=== PATIENT | female | born 1970 | race African-American/Black ===

== ENCOUNTER 2018-11-24 20:50 | Observation (INO) ==
[2018-11-24] MEDS ORDERED: NS 1,000 ML IV ONE ×2 (21:38→23:46)
--- NOTE | 2018-11-24 22:12 | PROVIDER DOCUMENTATION ---
HPI-General Adult - General Chief Complaint: Weakness Stated Complaint: FATIGUE, SOB, NAUSEATED Time Seen by Provider: 11/24/18 21:37 Source: patient Allergies/Adverse Reactions: Patient Allergies Allergy/AdvReac Type Severity Reaction Status Date / Time aspirin Allergy NAUSEA Verified 11/24/18 21:09 [facility] Allergy ITCHING Verified 11/24/18 21:09 sitagliptin phosphate * AdvReac Severe "STOPS MY Verified 11/24/18 21:09 [From Jc] HEAD UP" Home Medications: Home Medication List Medication Instructions Recorded Confirmed Last Taken Type Citalopram Hydrobromide [Celexa] 10 mg PO DAILY 11/15/12 10/18/18 08/19/18 History Omeprazole [Prilosec] 20 mg PO DAILY@0700 11/15/12 10/18/18 08/19/18 History Carvedilol [Coreg] 3.125 mg PO BID #0 tablet 02/10/14 10/18/18 08/19/18 Rx PRAVAstatin [Pravachol] 40 mg PO QHS #0 tablet 02/10/14 10/18/18 08/19/18 Rx Cyproheptadine [Periactin] 4 mg PO HS 09/11/14 10/18/18 08/19/18 History Chlorthalidone 25 mg PO QAM 09/16/16 10/18/18 08/19/18 History Ferrous Sulfate [Iron] 27 mg PO DAILY 09/23/17 10/18/18 08/19/18 History Liraglutide [Victoza] 1.2 units SUBQ DAILY 09/23/17 10/18/18 08/19/18 History Metformin HCl [Fortamet] 1,000 mg PO BID 09/23/17 10/18/18 08/19/18 History Multivitamin with Minerals [One 1 each PO DAILY 09/23/17 10/18/18 08/19/18 History Daily Adults] Vitamin B Complex Vit C No.4 150 mg PO DAILY 09/23/17 10/18/18 08/19/18 History [Super B Complex] Ibuprofen 800 mg PO TID PRN 10 Days #30 tab 04/07/18 10/18/18 08/19/18 Rx RAMIpril [Altace] 5 mg PO DAILY 04/07/18 10/18/18 08/19/18 History Albuterol Sulfate [Albuterol 8.5 gm INHALATION Q4-6H PRN PRN #1 07/12/18 10/18/18 08/19/18 Rx Sulfate Hfa] hfa.aer.ad Fexofenadine/Pseudoephedrine 1 ea PO BID #30 tab.er.12h 07/12/18 10/18/18 08/19/18 Rx [Terrie-D 12 Hour Tablet] Meclizine HCl [Antivert] 25 mg PO Q6H #12 tab 10/18/18 Unknown Rx - History of Present Illness -Gen Adult Nature of Presenting Problems: 48 yr old F, hx of HTN, DM, hyperlipidemia, presents with a 3 day hx of generalized weakness and fatigue. The pt reports her symptoms actually started last week when she had generalized abdominal pain with loose stools and nausea. Those symptoms improved somewhat, but over the past 72 hrs, she has been feeling weak, fatigued, with subjective fever and chills. She reports loose stools, last one being today - no blood noted. She denies any change in medication recently. She reports compliance with her current medication regimen. Location of Pain/Injury: reports: abdomen Pain Radiation: reports: no radiation Quality of Pain: reports: cramping Severity: reports: mild Onset/Duration: reports: 6 days ago Timing: reports: still present Associated Symptoms: reports: diarrhea, nausea - Diabetes Related Context Context: reports: high blood sugar Review of Systems - Adult - REVIEW OF SYSTEMS - ADULT Constitutional: reports: chills, fever Eyes: reports: no symptoms reported Ears, Nose, Mouth & Throat: reports: no symptoms reported Cardiovascular: reports: no symptoms reported Respiratory: reports: no symptoms reported Gastrointestinal: reports: abdominal pain, diarrhea, nausea Genitourinary: reports: no symptoms reported Musculoskeletal: reports: no symptoms reported Neurological: reports: no symptoms reported Psychiatric: reports: no symptoms reported Endocrine: reports: polyuria Past History - Adult - PAST MEDICAL HISTORY-ADULT Review of Records: reports: Nursing Assessment Review Major Childhood Illnesses: reports: denies history Cardiovascular: reports: HTN, hyperlipidemia Respiratory: reports: sleep apnea Gastrointestinal: reports: GERD Obstetrical/Gynecological: reports: denies history Genitourinary: reports: denies history Musculoskeletal: reports: denies history Neurological: reports: denies history Endocrine/Immune: reports: Diabetes Sickle Cell Genotype:: Unknown Other Conditions: reports: denies history Additional History: sickle cell trait - PRIOR SURGERIES/PROCEDURES Surgical/Procedure History: reports: hysterectomy, BTL - IMMUNIZATION STATUS Childhood Immunizations: See Nurse Assessment Flu Vaccine: See Nurse Assessment - FAMILY HISTORY Family History: reviewed, not pertinent Physical Exam-General - PHYSICAL EXAM-ADULT Initial Vital Signs Reviewed: Yes - CONSTITUTIONAL General Appearance: alert, mild distress - EYES Eyes: PERRL/EOMI - HEAD, EARS, NOSE, MOUTH & THROAT HENMT: normocephalic/atraumatic, moist mucous membranes - RESPIRATORY Respiratory: lungs clear, normal breath sounds - CARDIOVASCULAR Cardiovascular: regular rate, rhythm - GASTROINTESTINAL (ABDOMEN) Abdominal Exam: normal bowel sounds, soft, tenderness (generalized) - SKIN Integumentary: warm/dry - NEUROLOGIC Neurologic: no motor/sensory deficits - PSYCHIATRIC Psych/Mental Status: normal mood/affect, oriented x 3 Progress - PLAN OF CARE/RESULTS Progress/Plan/Lab Results: Vital Signs - 8 hr 11/24/18 20:55 Temperature 97.9 F Pulse Rate 123 H Respiratory Rate 18 Blood Pressure 115/75 O2 Sat by Pulse Oximetry 97 11/24/18 20:58 Influenza Screen - Final Nasopharyngeal Laboratory Results - last 24 hr 11/24/18 21:05 POC Glucose 500 H D Orders Category Date Time Status CHEST-2 VIEWS [RAD] Stat Exams 11/24/18 21:55 Taken CBC WITH ELECTRONIC DIFF [HEME] Stat Lab 11/24/18 22:07 Ordered CMP [COMPREHENSIVE METABOLIC PANEL] [CHEM] Stat Lab 11/24/18 22:07 Ordered Flu Swab [INFLUENZA SCREEN A/B] Stat Lab 11/24/18 20:58 Completed TROPONIN T Stat Lab 11/24/18 21:53 Ordered 0.9% Sodium Chloride Inj [Ns] 1,000 ml Med 11/24/18 21:38 Active IV 999 mls/hr EKG [EKG] Stat Ther 11/24/18 21:02 Ordered Glucose of 720...repeat fingerstick is still greater than 500 on Ed glucometer, after 10 units of insulin. With the significant electrolyte derangement noted, pt will require additional management - spoke with hospitalist who agrees to accept the admission. Pt made aware of the plan. Result Diagrams: 11/24/18 22:01 11/24/18 22:01 - CONSULTS/PCP/HOSPITALIST Notification #1 *Consult/PCP/Hospitalist*: Dr. Valle Time Discussed: 23:50 Consult Disposition: Admit Departure - Departure Date of Disposition Decision: 11/24/18 Time of Disposition Decision: 23:52 DIAGNOSIS: Hyperglycemia due to type 2 diabetes mellitus Disposition: ADMITTED INPATIENT 09 Certified Medical Emergency: Emergent Condition: Stable Referrals and Follow-Ups: Vicente Barrow MD [Primary Care Provider] - - Critical Care Note This patient required my direct & personal management of CC.: No Attestation - Physician/ FRED Attestation Patient care was provided by Advanced Practice Provider:: No The physician spent face to face time with patient:: Yes Advanced Practice Provider documentation review:: Supervising physician onsite and consulted in the evaluation and care of this patient. The physician did have a face to face encounter with the patient.
--- NOTE | 2018-11-24 22:15 | Diag Imaging Result Doc PS360 ---
CHEST-2 VIEWS - 11/24/2018 INDICATION: SOB COMPARISON: 07/12/2018 FINDINGS: The lungs are normally expanded and clear. Heart size and mediastinal contours are normal. No pneumothorax or pleural effusion. IMPRESSION: Negative exam. Electronically signed by Nathan Shahid 11/24/2018 10:12 PM
[2018-11-24] MEDS ORDERED: HUMULIN R IV ONE ×2 (22:22→23:46)
[2018-11-24] MEDS ORDERED: ZOFRAN IV ONE (22:25)
[2018-11-24 22:28] LABS: BASO# 0.05 X1000 (0.0-0.2); BASO% 0.6 % (0.0-0.8); EOS# 0.07 X1000 (0.0-0.7); EOS% 0.9 % (0.0-10.0); HEMATOCRIT 41.6 % (37.0-47.0); HEMOGLOBIN 14.5 g/dL (12.0-16.0); IMM GRAN# 0.02 X1000 (0.0-0.04); IMM GRAN% 0.2 % (0.0-0.5); LYMPH# 2.23 X1000 (1.2-3.4); LYMPH% 27.4 % (20.5-51.1); MCH 28.1 PG (27-31); MCHC 34.9 g/dL (33-37); MCV 80.6 FL (81-99); MONO# 0.51 X1000 (0.11-0.59); MONO% 6.3 % (1.7-9.3); MPV 11.6 FL (7.4-10.4); NEUT# 5.27 X1000 (1.4-6.5); NEUT% 64.6 % (42.2-75.2); PLT 352 X1000 (130-400); RBC 5.16 XMIL (4.2-5.4); RDW 12.7 % (11.5-14.5); WBC 8.15 X1000 (4.8-10.8)
[2018-11-24] MEDS ORDERED: PROTONIX PO ONE (22:30)
[2018-11-24 23:03] LABS: URINE SOURCE CLEAN CATCH
[2018-11-24 23:05] LABS: BILIRUBIN URINE NEGATIVE (NEGATIVE); BLOOD URINE NEGATIVE (NEGATIVE); COLOR STRAW; GLUCOSE URINE >1000 mg/dL (NEGATIVE); KETONE URINE 10 mg/dL (NEGATIVE); LEUKOCYTES URINE NEGATIVE (NEGATIVE); NITRITE URINE NEGATIVE (NEGATIVE); PROTEIN URINE NEGATIVE (NEGATIVE); SP GRAVITY URINE 1.034; TURBIDITY URINE CLEAR (CLEAR); UROBILINOGEN URINE NORMAL (NORMAL)
[2018-11-24 23:06] LABS: UR EPITHELIAL CELLS <10 /HPF (<10); URINE BACTERIA NEGATIVE /HPF; URINE RBC <10 /HPF (<10); URINE WBC <10 /HPF (<10)
--- NOTE | 2018-11-24 23:30 | EKG Report ---
Test Performed on : 11/24/2018 9:00:58 PM Test Reason : weakness Blood Pressure : / mmHG Vent. Rate : 112 BPM Atrial Rate : 112 BPM P-R Int : 130 ms QRS Dur : 080 ms QT Int : 358 ms P-R-T Axes : 055 019 029 degrees QTc Int : 488 ms Sinus tachycardia. Minimal voltage criteria for LVH, may be normal variant Cannot rule out Anterior infarct , age undetermined Abnormal ECG When compared with ECG of 18-OCT-2018 09:09, (Unconfirmed) Vent. rate has increased BY 39 BPM Unconfirmed Result
[2018-11-24 23:41] LABS: AGAP 17; ALB/GLOB RATIO 1.3; ALBUMIN 4.4 g/dL (3.5-5.0); ALKALINE PHOSPHATASE 140 U/L (32-104); BUN 9 mg/dL (8-22); CALCIUM 9.3 mg/dL (8.8-10.2); CHLORIDE 84 mmol/L (98-107); COSMO 291; CREATININE 1.1 mg/dL (0.5-0.9); GOT 11 U/L (10-30); GPT 10 U/L (10-36); POTASSIUM 3.7 mmol/L (3.5-5.1); SODIUM 128 mmol/L (136-145); TCO2 27 mmol/L (25-35); TOTAL BILIRUBIN 0.67 mg/dL (0.20-1.00); TOTAL PROTEIN 7.7 g/dL (6.3-8.3)
[2018-11-24 23:42] LABS: GLUCOSE 720 mg/dL (70-104)
[2018-11-24] MEDS: POTASSIUM CHLORIDE 20 MEQ/SWI 20 MEQ/100 ML IVPB IV SCH (23:45)
[2018-11-24] MEDS ORDERED: POTASSIUM CHLORIDE 40 MEQ/SWI 40 MEQ/100 ML IVPB IV ONE (23:54)
[2018-11-25 00:01] LABS: ALLEN TEST YES; BE 3.8 mmoll (-3.0-3.0); BLOOD TYPE ARTERIAL; HCO3-(ACT) 27.8 mmoll (20.0-26.0); O2(CT) 18.3 mL/dL (15.0-23.0); O2HB 93.6 % (95.0-99.0); PCO2(98.6) 46 mmHg (35-45); PO2(98.6) 71 mmHg (60-100); SAMPLE BLOOD; THB 13.9 g/dL (11.5-17.4); pH(98.6) 7.41 (7.35-7.45)
[2018-11-25 00:02] LABS: MODALITY ROOM AIR
[2018-11-25] MEDS ORDERED: ZOFRAN IV PRN (00:16)
[2018-11-25] MEDS ORDERED: VENTOLIN HFA INH PRN (00:21)
--- NOTE | 2018-11-25 00:31 | ED EKG INTERP ---
This chart was entered by Christian Melchor Scribe, acting as scribe for Celestino Garland MD. EKG Interpretation - EKG Time of EKG reading by physician:: 21:02 EKG Read and Signed by:: Celestino Garland EKG Interpretation (*Must complete 3 of following elements*): Abnormal Rate: 112 Rhythm: sinus tachycardia Iraan: normal QRS: LVH Attestation - Physician/ FRED Attestation Patient care was provided by Advanced Practice Provider:: No The physician spent face to face time with patient:: Yes Advanced Practice Provider documentation review:: Supervising physician onsite and consulted in the evaluation and care of this patient. The physician did have a face to face encounter with the patient. This chart was documented by the indicated scribe, (Christian Melchor Scribe) and accurately reflects the services I performed and decisions made by me, Celestino Garland MD, as attested by the provider's signature.
[2018-11-25 01:00] LABS: HEMOGLOBIN A1C 11.7 % (4.8-6.0)
[2018-11-25] MEDS ORDERED: NS 1,000 ML IV SCH (02:00)
--- NOTE | 2018-11-25 02:15 | HISTORY AND PHYSICAL ---
CHIEF COMPLAINT: Weakness, fatigue, subjective feelings of chills since 3 days. HISTORY OF PRESENT ILLNESS: Ms. Mcdonough is a 48-year-old lady with past medical history of noninsulin-dependent diabetes mellitus, obesity and essential hypertension, who comes into the emergency room for weakness and fatigue of about 3 days duration. The patient was apparently in her usual state of health until 7 days ago, when she had started developing nausea, vomiting, abdominal pain and frequent loose stools. Though symptoms seemed to get better and she only had one episode of vomiting, since then her appetite has decreased. Since then she has been having loose watery stools, though it was only once or twice in a day's time since the last few days. Her symptoms did not sound to be too much bothersome to her, as she went out with her family to eat at [employer] yesterday; however, after returning, she started feeling as if she has been feeling very weak and tired, and so she decided to come to the emergency room. In the emergency room, she was found to be tachycardic with pulse of 123. Initial workup otherwise was unremarkable except blood sugars of over 700. She was given intravenous insulin and intravenous potassium, and hospitalist team was further consulted for further management. At the time of my evaluation she denies currently having vomiting or abdominal cramps. She is intermittently nauseous. She states she takes her medication most of the time regularly, and she currently is taking Victoza as well as metformin. The last dose was yesterday. She is denying any polyphagia or polyuria; however, she does mention intermittent loose watery stools. She denies any chest pain or shortness of breath. REVIEW OF SYSTEMS: Negative for headache. Negative for blurriness or double vision. Negative for burning on urination. Negative for vomiting. PAST MEDICAL HISTORY: 1. Noninsulin-dependent diabetes mellitus. 2. Essential hypertension. 3. Chronic GERD. 4. Hyperlipidemia. PAST SURGICAL HISTORY: Hysterectomy. FAMILY HISTORY: Noncontributory. PERSONAL HISTORY: Denies active tobacco, alcohol or recreational drug use. CURRENT MEDICATIONS: The medication list has to be reconciled yet; however, it is listed she was previously taking omeprazole 20 mg daily, citalopram 10 mg daily, carvedilol 3.125 mg b.i.d., pravastatin 40 mg at nighttime, chlorthalidone 25 mg in the morning, multivitamin 1 tablet daily, ramipril 5 mg daily, albuterol 8.5 g inhalation every 6 hours as needed for shortness of breath. ALLERGIES: She is listed to be allergic to aspirin, Dulaglutide and sitagliptin. PHYSICAL EXAMINATION: VITAL SIGNS: Temperature 97.9 degrees. Pulse 123; however, on my evaluation it was 96. Respiratory rate 18, blood pressure 115/75, saturating 97% on room air. GENERAL: Obese lady not in acute distress. HEENT: Oral cavity is moist. No pallor, cyanosis, clubbing or icterus. LUNGS: Air entry bilaterally equal. No wheeze, rhonchi or crackles. CARDIOVASCULAR: S1, S2 normal. No murmur, rub or gallop. Not tachycardic. ABDOMEN: Soft. Mild tenderness in right upper quadrant. Active bowel sounds. EXTREMITY: No lower extremity edema. LABORATORY DATA: Labs suggestive of normal hemoglobin and normal platelet count. Her pH is 7.4, pCO2 of 46 and bicarbonate of 27. She does have hyponatremia, hypochloremia, elevated creatinine, hyperglycemia. Alkaline phosphatase is slightly on the higher side. Urinalysis has ketones. Microbiology: Nasal influenza screen was negative. DIAGNOSTIC DATA: On admission she had a chest x-ray which did not have any acute cardiopulmonary process. ASSESSMENT AND PLAN: 1. Uncontrolled type 2 diabetes mellitus, likely because of dietary and lifestyle noncompliance. The patient was instructed about weight reduction, regular physical activity, healthy diet as well as keeping a close eye over her blood sugars. The patient does not have any acidosis on arterial blood gas, so I will start her on basal bolus regimen of subcutaneous insulin and will follow up with BMP and blood sugars closely. I will also keep a close eye over her potassium level. She may need to be discharged on insulin based on her hemoglobin A1c. 2. Episode of nausea, vomiting and loose stools about 7 days ago. The initial episode that she experienced 7 days ago could be related to viral gastroenteritis; however, there is a possibility she may be developing diabetic gastroparesis. I will follow up with hemoglobin A1c. In future I may consider ultrasound of right upper quadrant to rule out any cholelithiasis, since she has mild tenderness in the right upper quadrant with elevated alkaline phosphatase. 3. Essential hypertension. I will continue the patient on ramipril and carvedilol. I am holding her chlorthalidone as I am resuscitating her with intravenous fluids. 4. Others. I will start the patient on proton pump inhibitors for chronic gastroesophageal reflux disease as well as her current nausea and epigastric discomfort. 5. Disposition: I will monitor the patient on the medical floor. Plan of care discussed with her. Her questions have been answered. cc: Tobias Valle MD MTDD
[2018-11-25] MEDS: POTASSIUM CHLORIDE 20 MEQ/SWI 20 MEQ/100 ML IVPB IV SCH (03:09)
[2018-11-25] MEDS: HUMALOG SUBQ SCH ×6 (03:12→22:14)
[2018-11-25] MEDS ORDERED: LANTUS INSULIN SUBQ SCH ×2 (04:00→18:00)
[2018-11-25] MEDS: PRILOSEC PO SCH (07:10)
[2018-11-25 08:00] LABS: AGAP 13; BUN 7 mg/dL (8-22); CALCIUM 9.2 mg/dL (8.8-10.2); CHLORIDE 94 mmol/L (98-107); COSMO 279; CREATININE 0.9 mg/dL (0.5-0.9); ESTIMATED GFR > 60; GLUCOSE 289 mg/dL (70-104); POTASSIUM 3.4 mmol/L (3.5-5.1); SODIUM 135 mmol/L (136-145); TCO2 28 mmol/L (25-35)
[2018-11-25] MEDS: CELEXA PO SCH (10:04)
[2018-11-25] MEDS: THERA M PLUS PO SCH (10:04)
[2018-11-25] MEDS: COREG PO SCH ×2 (10:04→22:13)
[2018-11-25] MEDS: ALTACE PO SCH (10:04)
[2018-11-25] MEDS: GLUCOPHAGE PO SCH ×2 (10:52→16:26)
[2018-11-25] MEDS ORDERED: TYLENOL PO PRN (10:59)
[2018-11-25] MEDS ORDERED: LOVENOX SUBQ SCH (16:00)
[2018-11-25 17:21] LABS: AGAP 12; BUN 8 mg/dL (8-22); CALCIUM 8.8 mg/dL (8.8-10.2); CHLORIDE 95 mmol/L (98-107); COSMO 279; CREATININE 0.9 mg/dL (0.5-0.9); ESTIMATED GFR > 60; GLUCOSE 322 mg/dL (70-104); POTASSIUM 3.8 mmol/L (3.5-5.1); SODIUM 134 mmol/L (136-145); TCO2 27 mmol/L (25-35)
[2018-11-25] MEDS ORDERED: PRAVACHOL PO SCH (21:00)
[2018-11-26] MEDS: HUMALOG SUBQ SCH ×3 (04:04→09:37)
[2018-11-26] MEDS: PRILOSEC PO SCH (06:31)
[2018-11-26] MEDS ORDERED: FERGON PO SCH (08:00)
[2018-11-26] MEDS ORDERED: FLU VACCINE IM ONE (08:06)
[2018-11-26] MEDS ORDERED: INSULIN PEN NEEDLES MISC PRN (08:23)
[2018-11-26 08:26] LABS: AGAP 14; BUN 10 mg/dL (8-22); CALCIUM 8.8 mg/dL (8.8-10.2); CHLORIDE 96 mmol/L (98-107); COSMO 282; CREATININE 0.9 mg/dL (0.5-0.9); ESTIMATED GFR > 60; GLUCOSE 260 mg/dL (70-104); POTASSIUM 3.2 mmol/L (3.5-5.1); SODIUM 137 mmol/L (136-145); TCO2 27 mmol/L (25-35)
[2018-11-26] MEDS ORDERED: LANTUS INSULIN SUBQ SCH (09:00)
[2018-11-26] MEDS: THERA M PLUS PO SCH (09:25)
[2018-11-26] MEDS: COREG PO SCH (09:25)
[2018-11-26] MEDS: ALTACE PO SCH (09:25)
[2018-11-26] MEDS: GLUCOPHAGE PO SCH (09:26)
[2018-11-26] MEDS: CELEXA PO SCH (09:26)
[2018-11-26] MEDS ORDERED: KLOR-CON PO ONE (10:33)
[2018-11-26 11:05] VITALS: BP 111/71
--- NOTE | 2018-11-26 14:28 | DISCHARGE SUMMARY ---
ADMISSION DATE: 11/25/2018 DISCHARGE DATE: 11/26/2018 DIAGNOSES: 1. Uncontrolled diabetes mellitus type 2. 2. Episode sewed of nausea, vomiting, and loose stools about 7 days ago. 3. Essential hypertension. 4. Gastroesophageal reflux disease. 5. Hyperlipidemia. DIAGNOSTICS: Chest x-ray revealed negative exam. Lungs are normally expanded and clear. Heart size and mediastinal contours are normal. No pneumothorax or pleural effusion. Influenza A and B are both negative. HOSPITAL COURSE: Ms. Mcdonough presented to the emergency room complaining of weakness, fatigue, and subjective chills for 3 days. She developed nausea, vomiting, and abdominal pain with diarrhea 7 days prior. The symptoms improved, although her appetite decreased, and she experienced weakness, fatigue, and chills. During the hospitalization, blood sugars ranged initially in the 500s. They have decreased to the 240s to 280s. Her hemoglobin A1c returned at 11.7. She had no further nausea, vomiting. She has tolerated diabetic diet, eating 50 to 100% of her meals, and thankfully she is ready for discharge. DISCHARGE VITAL SIGNS: Blood pressure is 111/71, heart rate of 82, respirations 17, temperature 98.3 degrees oral with room air saturations 96 to 98%. DISCHARGE PHYSICAL EXAMINATION: Cardiovascular: Regular rate and rhythm. S1 and S2 appreciated. Pulmonary: Breath sounds are clear. No increased work of breathing noted. Chest rises and falls, symmetric respiration. Gastrointestinal: The abdomen is soft with bowel sounds in all 4 quadrants. : She has no CVA or suprapubic tenderness. DISCHARGE MEDICATIONS: 1. Vitamin B complex 1 p.o. daily. 2. Antivert 25 mg p.o. q.6 hours as directed. 3. Lantus insulin 20 units subcutaneous q.a.m. 4. Periactin 4 mg p.o. at bedtime. 5. Ventolin inhaler q.4-6 hours p.r.n. wheezing. 6. Altace 5 mg p.o. daily. 7. Pravastatin 40 mg p.o. at bedtime. 8. Prilosec 20 mg p.o. daily. 9. Multivitamin 1 p.o. daily. 10. Metformin 1000 mg p.o. b.i.d. 11. Victoza 1.2 units subcutaneous at bedtime. 12. Ferrous sulfate 27 mg p.o. with breakfast. 13. Celexa 10 mg p.o. q.a.m. 14. Carvedilol 3.125 p.o. b.i.d. FOLLOWUP: Dr. Vicente Barrow, primary care provider. She is to follow up within a week. She has been instructed to call in the morning to schedule an appointment. She has been instructed to call to be seen sooner or return to the ER for any syncope, dizziness, chest pain, palpitations, recurring nausea, vomiting, diarrhea, constipation, black or bloody vomitus or stools, any hematuria, dysuria, frequency, urgency, temperature greater than 101, or for any questions or concerns that she may have. She is being discharged home in stable condition with family members. Greater than 30 minute discharge. Dictated by RANJEET Ang for Eran Padilla MD cc: RANJEET Ang MD
[2018-11-26] MEDS ORDERED: VICTOZA SUBQ SCH (21:00)
== END 2018-11-26 12:42 | disposition home or self-care (01) ==
LOC: ED 20:50 → INTOOBSV 20:51 → SUATTDRO 11-25 01:10 → 4N 11-25 01:10
PROVIDERS: ATTEND Internal Medicine

== ENCOUNTER 2019-02-02 02:50 | Observation (INO) ==
[2019-02-02 03:58] LABS: BASO# 0.09 X1000 (0.0-0.2); BASO% 1.4 % (0.0-0.8); EOS# 0.09 X1000 (0.0-0.7); EOS% 1.4 % (0.0-10.0); LYMPH# 2.36 X1000 (1.2-3.4); LYMPH% 37.5 % (20.5-51.1); MCH 28.4 PG (27-31); MCHC 34.3 g/dL (33-37); MCV 82.7 FL (81-99); MONO% 9.5 % (1.7-9.3); MPV 10.3 FL (7.4-10.4); NEUT# 3.15 X1000 (1.4-6.5); NEUT% 50.2 % (42.2-75.2); PLT 299 X1000 (130-400); RBC 4.23 XMIL (4.2-5.4); RDW 12.8 % (11.5-14.5); WBC 6.29 X1000 (4.8-10.8)
[2019-02-02 04:17] LABS: AGAP 14; ALB/GLOB RATIO 1.8; ALBUMIN 4.2 g/dL (3.5-5.0); ALKALINE PHOSPHATASE 91 U/L (32-104); BUN 16 mg/dL (8-22); CALCIUM 9.3 mg/dL (8.8-10.2); CHLORIDE 97 mmol/L (98-107); COSMO 276; CREATININE 0.9 mg/dL (0.5-0.9); ESTIMATED GFR > 60; GLUCOSE 180 mg/dL (70-104); GOT 14 U/L (10-30); GPT 14 U/L (10-36); SODIUM 135 mmol/L (136-145); TCO2 24 mmol/L (25-35); TOTAL BILIRUBIN 0.28 mg/dL (0.20-1.00); TOTAL PROTEIN 6.6 g/dL (6.3-8.3)
[2019-02-02 04:42] LABS: INR 0.97; PROTIME 12.9 Seconds (11.0-16.0); PTT 27.6 Seconds (22.3-41.8)
--- NOTE | 2019-02-02 05:03 | PROVIDER DOCUMENTATION ---
HPI-Chest Pain - General Chief Complaint: Chest Pain Stated Complaint: cp Time Seen by Provider: 02/02/19 02:59 Source: patient Allergies/Adverse Reactions: Patient Allergies Allergy/AdvReac Type Severity Reaction Status Date / Time aspirin Allergy NAUSEA Verified 02/02/19 03:09 dulaglutide [From Trulicity] Allergy ITCHING Verified 02/02/19 03:09 sitagliptin phosphate * AdvReac Severe "STOPS MY Verified 02/02/19 03:09 [From Jc] HEAD UP" Home Medications: Home Medication List Medication Instructions Recorded Confirmed Last Taken Type Citalopram Hydrobromide [Celexa] 10 mg PO QAM 11/15/12 02/02/19 08/19/18 History Omeprazole [Prilosec] 20 mg PO DAILY@0700 11/15/12 02/02/19 08/19/18 History Carvedilol [Coreg] 3.125 mg PO BID #0 tablet 02/10/14 02/02/19 08/19/18 Rx PRAVAstatin [Pravachol] 40 mg PO QHS #0 tablet 02/10/14 02/02/19 08/19/18 Rx Cyproheptadine [Periactin] 4 mg PO HS 09/11/14 02/02/19 08/19/18 History Ferrous Sulfate [Iron] 27 mg PO WBREAKFAST 09/23/17 02/02/19 08/19/18 History Liraglutide [Victoza] 1.2 units SUBQ HS 09/23/17 02/02/19 08/19/18 History Metformin HCl [Fortamet] 1,000 mg PO BID 09/23/17 02/02/19 08/19/18 History Multivitamin with Minerals [One 1 each PO DAILY 09/23/17 02/02/19 08/19/18 Hi story Daily Adults] Vitamin B Complex Vit C No.4 150 mg PO DAILY 09/23/17 02/02/19 08/19/18 History [Super B Complex] RAMIpril [Altace] 5 mg PO DAILY 04/07/18 02/02/19 08/19/18 History Meclizine HCl [Antivert] 25 mg PO Q6H #12 tab 10/18/18 02/02/19 Unknown Rx Albuterol Sulfate Inhaler 1 puff INH Q4-6H PRN PRN inhaler 11/26/18 02/02/19 Unknown Rx [Ventolin Hfa] Insulin Glargine [Lantus Insulin] 20 unit SUBQ QAM #1 unit 11/26/18 02/02/19 Unknown Rx - History of Present Illness-CP Nature of Presenting Problem: 48 y/o BF c/o substernal chest pain that radiates through to her back for the past 2 days. She denies any Nausea but has been SOB. Location: reports: substernal, other (lt sided chest pain) Chest Pain Radiation: reports: back Quality of Pain: reports: aching, pressure Severity in ED: mild Onset/Duration: 2 days ago Timing: still present Context/Activities at Onset: reports: light activity Modifying Factors: improves with: exercise Associated Symptoms: reports: shortness of breath Nitro Today/Relief: no nitro taken today Aspirin Treatment Today: no aspirin today Prior Chest Pain/Cardiac Workup: reports: no prior chest pain Similar Symptoms Previously?: No Recently Seen Here or By Another Healthcare Provider: No Review of Systems - Adult - REVIEW OF SYSTEMS - ADULT Constitutional: reports: no symptoms reported, see HPI Eyes: reports: no symptoms reported, see HPI Ears, Nose, Mouth & Throat: reports: no symptoms reported, see HPI Cardiovascular: reports: see HPI, chest pain Respiratory: reports: see HPI, shortness of breath Gastrointestinal: reports: no symptoms reported, see HPI Genitourinary: reports: no symptoms reported, see HPI Musculoskeletal: reports: no symptoms reported, see HPI Integumentary: reports: no symptoms reported, see HPI Neurological: reports: no symptoms reported, see HPI Psychiatric: reports: no symptoms reported, see HPI Endocrine: reports: no symptoms reported, see HPI Hematologic/Lymphatic: reports: no symptoms reported, see HPI Allergic/Immunologic: reports: no symptoms reported, see HPI All Other Systems: Reviewed and Negative Past History - Adult - PAST MEDICAL HISTORY-ADULT Review of Records: reports: Nursing Assessment Review, Medications Reviewed, Social history reviewed & non-contributory. Major Childhood Illnesses: reports: denies history Cardiovascular: reports: HTN, hyperlipidemia Respiratory: reports: sleep apnea Gastrointestinal: reports: GERD Obstetrical/Gynecological: reports: denies history Genitourinary: reports: denies history Musculoskeletal: reports: denies history Neurological: reports: denies history Endocrine/Immune: reports: Diabetes Sickle Cell Genotype:: Unknown Other Conditions: reports: denies history Additional History: sickle cell trait - PRIOR SURGERIES/PROCEDURES Surgical/Procedure History: reports: hysterectomy, BTL - IMMUNIZATION STATUS Childhood Immunizations: See Nurse Assessment Flu Vaccine: See Nurse Assessment - FAMILY HISTORY Family History: reviewed, not pertinent Physical Exam-General - PHYSICAL EXAM-ADULT Initial Vital Signs Reviewed: Yes - CONSTITUTIONAL General Appearance: appears well, alert, no apparent distress - EYES Eyes: PERRL/EOMI - HEAD, EARS, NOSE, MOUTH & THROAT HENMT: normocephalic/atraumatic, moist mucous membranes - NECK Neck: non-tender, full range of motion, supple, normal inspection - RESPIRATORY Respiratory: chest non-tender, lungs clear, normal breath sounds, no pleuratic chest pain, no respiratory distress, no accessory muscle use - CARDIOVASCULAR Cardiovascular: normal peripheral pulses, regular rate, rhythm, no edema, no gallop, no JVD, no murmur - GASTROINTESTINAL (ABDOMEN) Abdominal Exam: normal bowel sounds, non tender, soft, no organomegaly, no pulsatile mass - LYMPHATIC Lymphatic: no adenopathy - MUSCULOSKELETAL Back Exam: normal inspection, no CVA tenderness, no vertebral tenderness Extremity: normal range of motion, non-tender, normal gait, normal inspection, no pedal edema, no calf tenderness, normal capillary refill - SKIN Integumentary: normal color, normal turgor - NEUROLOGIC Neurologic: 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 nml as tested, grossly normal, no motor/sensory deficits - PSYCHIATRIC Psych/Mental Status: normal mood/affect, normal thought content, normal thought process, oriented x 3 - HEART Score HEART Score: History: Slightly Suspicious HEART Score: ECG: Normal HEART Score: Age: 45-65 Years HEART Score: Risk Factors for Atherosclerotic Disease: > or = 3 Risk Factors or History of Atherosclerotic Disease HEART Score: Troponin: < or = Normal Limit Total HEART Score:: 3 Progress - PLAN OF CARE/RESULTS Progress/Plan/Lab Results: Vital Signs - 8 hr 02/02/19 02:50 02/02/19 03:03 02/02/19 03:15 Temperature 98.2 F Pulse Rate 80 75 Respiratory Rate 16 19 Blood Pressure 122/65 122/65 O2 Sat by Pulse Oximetry 97 97 97 02/02/19 03:30 02/02/19 03:45 02/02/19 04:00 Temperature Pulse Rate 82 83 87 Respiratory Rate 13 Blood Pressure O2 Sat by Pulse Oximetry 100 100 99 02/02/19 04:15 02/02/19 04:30 02/02/19 04:45 Temperature Pulse Rate 82 84 75 Respiratory Rate 20 21 16 Blood Pressure O2 Sat by Pulse Oximetry 100 100 100 02/02/19 05:00 02/02/19 05:15 02/02/19 05:30 Temperature Pulse Rate 82 82 83 Respiratory Rate 16 15 15 Blood Pressure O2 Sat by Pulse Oximetry Laboratory Results - last 24 hr 02/02/19 02/02/19 02/02/19 03:38 03:38 03:38 WBC 6.29 RBC 4.23 Hgb 12.0 Hct 35.0 L MCV 82.7 MCH 28.4 MCHC 34.3 RDW Std Deviation 12.8 Plt Count 299 MPV 10.3 Immature Gran % (Auto) 0.0 Neut % (Auto) 50.2 Lymph % (Auto) 37.5 [place] % (Auto) 9.5 H Eos % (Auto) 1.4 Baso % (Auto) 1.4 H Immature Gran # (Auto) 0.00 Neut # (Auto) 3.15 Lymph # (Auto) 2.36 [place] # (Auto) 0.60 H Eos # (Auto) 0.09 Baso # (Auto) 0.09 PT INR PTT (Actin FS) Sodium 135 L Potassium 4.0 Chloride 97 L Carbon Dioxide 24 L Anion Gap 14 BUN 16 Creatinine 0.9 Estimated GFR/1.73 m2 > 60 BUN/Creatinine Ratio 18 Glucose 180 H Calculated Osmolality 276 Calcium 9.3 Total Bilirubin 0.28 AST 14 ALT 14 Alkaline Phosphatase 91 Troponin T [id number]-[id number] Pept 248 H Total Protein 6.6 Albumin 4.2 Globulin 2.4 Albumin/Globulin Ratio 1.8 02/02/19 02/02/19 03:38 03:38 WBC RBC Hgb Hct MCV MCH MCHC RDW Std Deviation Plt Count MPV Immature Gran % (Auto) Neut % (Auto) Lymph % (Auto) [place] % (Auto) Eos % (Auto) Baso % (Auto) Immature Gran # (Auto) Neut # (Auto) Lymph # (Auto) [place] # (Auto) Eos # (Auto) Baso # (Auto) PT 12.9 INR 0.97 PTT (Actin FS) 27.6 Sodium Potassium Chloride Carbon Dioxide Anion Gap BUN Creatinine Estimated GFR/1.73 m2 BUN/Creatinine Ratio Glucose Calculated Osmolality Calcium Total Bilirubin AST ALT Alkaline Phosphatase Troponin T < 0.010 [id number]-Igieccwslhu Pept Total Protein Albumin Globulin Albumin/Globulin Ratio Orders Category Date Time Status Nursing- Obtain EKG ONCE Care 02/02/19 03:10 Active Nursing- Obtain EKG ONCE Care 02/02/19 03:23 Active CHEST-1 VIEW [RAD] Stat Exams 02/02/19 03:23 Taken CBC WITH ELECTRONIC DIFF [HEME] Stat Lab 02/02/19 03:38 Completed COMPREHENSIVE METABOLIC PANEL [CHEM] Stat Lab 02/02/19 03:38 Completed PRO B-NATRIURETIC PEPTIDE Stat Lab 02/02/19 03:38 Completed PT [PROTIME WITH INR] [COAG] Stat Lab 02/02/19 03:38 Completed PTT [COAG] Stat Lab 02/02/19 03:38 Completed TROPONIN T Stat Lab 02/02/19 03:38 Completed EKG [EKG] Stat Ther 02/02/19 03:23 Draft Result Diagrams: 02/02/19 03:38 02/02/19 03:38 - EKG 1 Time of EKG reading by physician:: 03:14 EKG Read and Signed by:: Giorgio Mckay EKG Interpretation (*Must complete 3 of following elements*): Normal Rate: 72 Rhythm: nsr [place]: normal QRS: normal VA Interval: normal ST Wave: normal - CONSULTS/PCP/HOSPITALIST Notification #1 *Consult/PCP/Hospitalist*: Dr Hawkins Time Discussed: 06:02 Consult Disposition: Will see in ED, Admit Departure - Departure Date of Disposition Decision: 02/02/19 Time of Disposition Decision: 05:02 DIAGNOSIS: Chest pain Disposition: ADMITTED INPATIENT 09 Certified Medical Emergency: Emergent Condition: Fair Referrals and Follow-Ups: Vicente Barrow MD [Primary Care Provider] - - Critical Care Note This patient required my direct & personal management of CC.: No Attestation - Physician/ FRED Attestation Patient care was provided by Advanced Practice Provider:: No The physician spent face to face time with patient:: Yes Advanced Practice Provider documentation review:: Supervising physician onsite and consulted in the evaluation and care of this patient. The physician did have a face to face encounter with the patient.
--- NOTE | 2019-02-02 05:16 | EKG Report ---
Test Performed on : 02/02/2019 03:14:42 AM Test Reason : cp Blood Pressure : / mmHG Vent. Rate : 072 BPM Atrial Rate : 072 BPM P-R Int : 150 ms QRS Dur : 086 ms QT Int : 410 ms P-R-T Axes : 055 025 012 degrees QTc Int : 448 ms Normal sinus rhythm. Normal ECG When compared with ECG of 24-NOV-2018 21:00, (Unconfirmed) Vent. rate has decreased BY 40 BPM Unconfirmed Result
--- NOTE | 2019-02-02 06:17 | Diag Imaging Result Doc PS360 ---
EXAM: CHEST-1 VIEW HISTORY: cp TECHNIQUE: Single view COMPARISON: 11/24/2018 FINDINGS: The lungs are well expanded. The heart is not enlarged. The vessels are not distended. There are no infiltrates. No effusion identified. IMPRESSION: Negative exam. Electronically signed by Reji Carreon 02/02/2019 6:15 AM
--- NOTE | 2019-02-02 10:10 | Diag Imaging Result Doc PS360 ---
EXAM: CT ANGIOGRM PULMONARY ARTERIES 02/02/2019 HISTORY: CP, SOB TECHNIQUE: This exam was performed using automated exposure control, adjustment of mA or kV according to patient size, and/or use of iterative reconstruction technique. COMMENT: Contrast opacification of the central pulmonary arterial branches is suboptimal. There are no definite filling defects. 3-D MIPS were performed. The thoracic aorta is normal in caliber without evidence of dissection. There is no evidence of significant adenopathy no abnormal fluid collections are present. There is a somewhat ill-defined nodular opacity present in the superior segment of the right lower lobe measuring less than 7 mm in diameter. There are no previous thoracic studies available for comparison, however compared to 06/05/2013 the abdominal study which should have contained this area is not demonstrated at the time the previous study. There is an azygos lobe on the right. Otherwise there is no evidence of acute pulmonary parenchymal disease. IMPRESSION: Nonspecific pulmonary nodule in the right lower lobe. No evidence of pulmonary emboli. Electronically signed by Michael Lopez 02/02/2019 10:08 AM
[2019-02-02] MEDS ORDERED: VENTOLIN HFA INH PRN (11:33)
[2019-02-02 15:56] VITALS: BP 97/41
--- NOTE | 2019-02-02 20:47 | HISTORY AND PHYSICAL ---
CHIEF COMPLAINT: Chest pain, shortness of breath. HPI: This is a 48-year-old female with a history of diabetes mellitus type 2, hypertension, gastroesophageal reflux disease. She presented to the emergency room complaining of chest pain that is midsternal that radiates straight through her back. She states this started about 48 hours ago. It is exacerbated by leaning forward with movement, it can be reproduced with palpation or taking a deep breath and coughing. When sitting still she rates the pain is almost gone. She denied any fevers or chills, any palpitations. Of note she did state that she has had left calf pain on walking that started about 2 weeks ago shortly after traveling to [place] back over the . PAST MEDICAL HISTORY: Hypertension, hyperlipidemia, obstructive sleep apnea, diabetes mellitus, gastroesophageal reflux disease. PAST SURGICAL HISTORY: Hysterectomy. SOCIAL HISTORY: She denies any alcohol, tobacco or illicit drug use. She is . FAMILY HISTORY: Positive for diabetes and hypertension. ALLERGIES: Aspirin which causes nausea, Trulicity which causes itching and Janumet which stops her head up. HOME MEDICATIONS: A list will be obtained by the nursing staff and once verified will review and restart as appropriate. REVIEW OF SYSTEMS: Discussed with patient with pertinent positives stated in the HPI. She denied any syncope or dizziness, any palpitations, any productive cough, fever, chills, night sweats, recent weight loss or weight gain, any nausea, vomiting, diarrhea, constipation, black or bloody vomitus or stools, any hematuria, dysuria, frequency, urgency. PHYSICAL EXAMINATION: GENERAL: This is a 48-year-old female who is sitting up in the bed in the emergency room in no distress. VITAL SIGNS: Blood pressure is 113/83 with a heart rate of 80, respirations are 17, temperature is 98.2 degrees with room air saturations 97 to 99 percent. HEENT: Pupils are equal, round, react to light. EOMs are intact. Sclerae are anicteric. Head is normocephalic, atraumatic. Mucous membranes are moist. NECK: Supple. Trachea midline. CARDIOVASCULAR: Regular rate and rhythm. S1 and S2 appreciated. She has no lower extremity edema. Calves right nontender, left ttp and on dorsiflexion foot peripheral pulses palpable x4 extremities. No murmur is noted. PULMONARY: Breath sounds are clear with no increased work of breathing noted. Chest rises and falls symmetric respiration. Chest wall is tender to palpation mid sternum and just above the left breast. GASTROINTESTINAL: Abdomen soft, nontender, nondistended. Bowel sounds in all 4 quadrants. GENITOURINARY: No CVA or suprapubic tenderness. NEUROLOGIC: She is alert and oriented x3. SKIN: Warm and dry. LABS: WBC is 6.29 with hemoglobin 12, hematocrit 35, platelets of 299,000. INR 0.97. Sodium 135, potassium 4, BUN 16, creatinine 0.9 with a glucose of 180. Troponin is negative with a CPK of 98. Chest x-ray revealed a negative exam. EKG sinus rhythm at a rate of 73. ASSESSMENT AND PLAN: 1. Chest pain. 2. Shortness of breath. 3. Diabetes mellitus type 2. 4. Hypertension. 5. Gastroesophageal reflux disease. 6. Hyperlipidemia. 7. Left calf tenderness/pain PLAN: Will repeat a set of cardiac enzymes and troponin now and 6 hours. We will obtain a CTA of the pulmonary arteries, bilateral lower extremity Doppler. We will identify her home medications and continue these as appropriate. The patient was examined and plan was discussed with Dr. Rose. Further treatments pending hospital course. Dictated by RANJEET Ang for Edil Rose MD cc: RANJEET Ang Patient with troponin negative initial and at 6 hours. EKG unremarkable. CTA and lower extremity doppler negative for any acute process. only trace LE edema on exam. no orthopnea. BNP minimally elevated at 250 but nothing else that looks like CHF. discharging home to follow up with PCP. recommend outpatient sleep study for possibly sleep apnea plus or minus an echo and stress test, but at this time it doesn't really look cardiac in origin. MTDD
[2019-02-02] MEDS ORDERED: PERIACTIN PO SCH (21:00)
[2019-02-02] MEDS ORDERED: COREG PO SCH (21:00)
[2019-02-02] MEDS ORDERED: PRAVACHOL PO SCH (21:00)
[2019-02-03] MEDS ORDERED: PRILOSEC PO SCH (07:00)
[2019-02-03] MEDS ORDERED: GLUCOPHAGE PO SCH (08:00)
[2019-02-03] MEDS ORDERED: FERROUS SULFATE PO SCH (08:00)
[2019-02-03] MEDS ORDERED: ALTACE PO SCH (09:00)
[2019-02-03] MEDS ORDERED: CENTRUM TABLET PO SCH (09:00)
[2019-02-03] MEDS ORDERED: CELEXA PO SCH (09:00)
[2019-02-03] MEDS ORDERED: VICON-C PO SCH (09:00)
--- NOTE | 2019-02-06 22:12 | Extremity Venous Study ---
PROCEDURE NAME: Venous U/S Bilateral Legs - 02/02/2019 REFERRING PRACTITIONER: RANJEET Ang. READING PHYSICIAN: Ubaldo Ross MD. BASKET HAND BRAIDER: Karon. INDICATION: Chest pain and left calf pain. FINDINGS: The deep and superficial veins of both lower extremities were imaged throughout their course. They are compressible, patent, and without thrombus. INTERPRETATION: No deep vein thrombosis or superficial vein thrombosis of either lower extremity. cc: MD Jacki Estrada CRNP
--- NOTE | 2019-02-07 16:27 | DISCHARGE SUMMARY ---
ADMISSION DATE: 02/02/2019 DISCHARGE DATE: 02/02/2019 BRIEF DISCHARGE SUMMARY: The patient presented with complaints of chest pain. Also some dyspnea and right calf pain with minimal swelling. Cardiac workup was unremarkable with essentially normal EKGs, and negative troponin. CTA was negative for pulmonary embolism or other acute process. At the time of discharge, lower extremity ultrasound final read was pending but preliminary report was negative for DVT. She was discharged home to follow up with her PCP later on the day of admission. [facility]
== END 2019-02-02 16:54 | disposition home or self-care (01) ==
LOC: SUPCPDRO → ED 02:50 → INTOOBSV 02:51 → EDIPHOLD 02:51 → 3N 13:12
PROVIDERS: ATTEND Internal Medicine